=== PATIENT | female | born 1995 | race American Indian/Alaskan Native ===

== ENCOUNTER 2021-08-01 20:49 | Emergency (ER) | payer SELFPAY ==
[2021-08-01 21:21] VITALS: BP 120/65
[2021-08-02 01:05] LABS: Hematocrit 38.6 % (30.3-42.9); Hemoglobin 12.9 gm/dl (10.1-14.3); Mean Corpuscular HGB Conc 34 % (30-34); Mean Corpuscular Volume 86 fl (79-97); Platelet Count 292 K/mm3 (140-440); Red Blood Count 4.47 M/mm3 (3.65-5.03); Red Cell Distribution Width 14.5 % (13.2-15.2)
[2021-08-02 01:14] LABS: Alanine Aminotransferase 10 units/L (7-56); Albumin 4.5 g/dL (3.9-5); Blood Urea Nitrogen 9 mg/dL (7-17); Calcium 9.5 mg/dL (8.4-10.2); Hemolysis Index 5
[2021-08-02 01:21] LABS: BUN/Creatinine Ratio 13
--- NOTE | 2021-08-02 01:31 | XRay Report ---
CHEST 2 VIEWS INDICATION / CLINICAL INFORMATION: dizziness and palpitations. COMPARISON: None available. FINDINGS: SUPPORT DEVICES: None. HEART / MEDIASTINUM: No significant abnormality. LUNGS / PLEURA: No significant pulmonary or pleural abnormality. No pneumothorax. BONES: No significant osseous abnormality. ADDITIONAL FINDINGS: No significant additional findings. IMPRESSION: 1. No active cardiopulmonary disease. Signer Name: Brandan Romero II, MD Signed: 08/02/2021 1:27 AM Workstation Name: [id number]
--- NOTE | 2021-08-02 11:33 | Electrocardiograph Report ---
[facility] Test Date: 2021-08-01 Test Time: 21:26:10 Pat Name: BRENDA PARDO Department: Room: Gender: F School Operations Manager: DERICK Fournier : 1995 Requested By: VALENCIA LANIER Order Number: [id number] Reading MD: Shaan Zelaya Measurements Intervals [place] Rate: 68 P: 60 RI: 176 QRS: 26 QRSD: 75 T: 36 QT: 376 QTc: 400 Interpretive Statements Sinus rhythm No previous ECG available for comparison Electronically Signed On 08-02-2021 11:32:41 EDT by Shaan Zelaya
== END 2021-08-02 02:10 | disposition left against medical advice (07) ==
LOC: ED 20:49
DX: R00.2 Palpitations (principal); Z53.21 Procedure and treatment not carried out due to patient leaving prior to being seen by health care provider
CPT/HCPCS: 36415; 71046; 80053; 84443; 84703; 85027; 93005

== ENCOUNTER 2021-08-16 01:30 | Emergency (ER) | payer MEDICAID ==
[2021-08-16 01:50] VITALS: BP 116/78
--- NOTE | 2021-08-16 02:20 | XRay Report ---
CHEST 2 VIEWS INDICATION / CLINICAL INFORMATION: chest pain. COMPARISON: Chest x-ray 08/02/2021 FINDINGS: SUPPORT DEVICES: None. HEART / MEDIASTINUM: No significant abnormality. LUNGS / PLEURA: No significant pulmonary or pleural abnormality. No pneumothorax. BONES: No significant osseous abnormality. ADDITIONAL FINDINGS: No significant additional findings. IMPRESSION: 1. No active cardiopulmonary disease. Signer Name: Brandan Romero II, MD Signed: 08/16/2021 2:15 AM Workstation Name: [id number]
--- NOTE | 2021-08-16 10:26 | Electrocardiograph Report ---
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
== END 2021-08-16 07:00 | disposition left against medical advice (07) ==
LOC: ED 01:30
DX: R07.9 Chest pain, unspecified (principal); Z53.21 Procedure and treatment not carried out due to patient leaving prior to being seen by health care provider
CPT/HCPCS: 71046; 93005